=== PATIENT | male | born 1985 | race Caucasian/White ===

== ENCOUNTER 2021-12-20 19:45 | Emergency (ER) | payer SELFPAY ==
[~2021-12-20] VITALS: Ht 177.8 cm; Wt 88.0 kg
[2021-12-20] MEDS ORDERED: VALA100044 PO (22:04)
[2021-12-20 22:10] VITALS: BP 116/88
== END 2021-12-20 22:10 | disposition home or self-care (01) ==
LOC: ER 19:45
DX: G51.0 Bell's palsy (principal)
CPT/HCPCS: 99281; 99283